=== PATIENT | male | born 1985 | race African-American/Black ===

== ENCOUNTER 2019-05-29 16:46 | Emergency (ER) | payer MEDICAID ==
[~2019-05-29] VITALS: Ht 188 cm; Wt 100.0 kg
[~2019-05-29 16:46] MED LIST: ALBU17AE27
[2019-05-29] MEDS ORDERED: IBUPROFEN 800 MG TABLET PO ONE (17:30)
[2019-05-29] MEDS ORDERED: PENICILLIN V POTASSIUM 500 MG TABLET PO ONE (17:30)
[2019-05-29 18:06] VITALS: BP 127/82
== END 2019-05-29 18:16 | disposition home or self-care (01) ==
LOC: EMS 16:49
DX: K02.9 Dental caries, unspecified (principal); J45.909 Unspecified asthma, uncomplicated; F17.210 Nicotine dependence, cigarettes, uncomplicated; F12.90 Cannabis use, unspecified, uncomplicated
CPT/HCPCS: 99406